=== PATIENT | male | born 1950 | race Caucasian/White ===

== ENCOUNTER 2017-01-11 18:01 | Emergency (ER) | payer SELFPAY ==
[~2017-01-11] VITALS: Ht 172.7 cm; Wt 75.5 kg
[2017-01-11 18:06] VITALS: Ht 172.7 cm; Wt 75.5 kg
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
[2017-01-11] MEDS ORDERED: IBUP-1542 PO (21:26)
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
== END 2017-01-11 21:36 | disposition home or self-care (01) ==
LOC: FTE 18:01
DX: S29.9XXA Unspecified injury of thorax, initial encounter (principal); S19.9XXA Unspecified injury of neck, initial encounter; S29.001A Unspecified injury of muscle and tendon of front wall of thorax, initial encounter; I10 Essential (primary) hypertension; R51 Headache; V43.52XA Car driver injured in collision with other type car in traffic accident, initial encounter
CPT/HCPCS: 70450; 71010; 72100; 72125